=== PATIENT | female | born 1995 | race Caucasian/White ===

== ENCOUNTER 2017-07-04 12:41 | Emergency (ER) | payer SELFPAY ==
[2017-07-04] MEDS ORDERED: ACETAMINOPHEN 325 MG TABLET PO ONE (13:12)
--- NOTE | 2017-07-04 13:14 | ER Document Report ---
ED Medical Screen (RME) - General Chief Complaint: Finger Injury Stated Complaint: RIGHT THUMBNAIL RIPPED OFF Time Seen by Provider: 07/04/17 13:11 Notes: RAPID MEDICAL EVALUATION DISCLOSURE I have seen this patient as part of a Rapid Medical Evaluation and, if applicable, placed any initially appropriate orders. The patient will be seen and fully evaluated, including a full history and physical exam, by a provider ( in Main ED or Fast Track) when a room becomes available. 22-year-old female jumped out of bed this morning and partially ripped her fake nail off her right thumb with the [place] nail still attached. EXAM False nail fully adhered to [place] nail however [place] nail partially pulled up revealing nailbed - Related Data Allergies/Adverse Reactions: No Known Allergies Allergy (Unverified 07/04/17 12:43) Past Medical History - Social History Chew tobacco use (# tins/day): No Frequency of alcohol use: Heavy Drug Abuse: None Renal/ Medical History: Denies: Hx Peritoneal Dialysis Physical Exam - Vital signs Vitals: Temp Pulse Resp BP Pulse Ox 98.3 F 89 16 123/73 99 07/04/17 12:45 07/04/17 12:45 07/04/17 12:45 07/04/17 12:45 07/04/17 12:45 Course - Vital Signs Vital signs: Temp Pulse Resp BP Pulse Ox 98.3 F 89 16 123/73 99 07/04/17 12:45 07/04/17 12:45 07/04/17 12:45 07/04/17 12:45 07/04/17 12:45
--- NOTE | 2017-07-04 14:16 | ER Document Report ---
ED General - General Chief Complaint: Finger Injury Stated Complaint: RIGHT THUMBNAIL RIPPED OFF Time Seen by Provider: 07/04/17 13:11 Information source: Patient - HPI Notes: 22-year-old female presents emergency department for evaluation right thumbnail injury. Patient reports that she jammed her fingernail into the couch. Patient reports that she heard a pop. Patient reports that part of her thumbnail is lifted off the nail bed. She denies any thumb pain or numbness. She denies any other injuries. She also denied any fever, chest pain, shortness of breath, abdominal pain, nausea, vomiting, diarrhea, or dysuria. - Related Data Allergies/Adverse Reactions: No Known Allergies Allergy (Unverified 07/04/17 12:43) Past Medical History - General Information source: Patient - Social History Smoking Status: Current Every Day Smoker Chew tobacco use (# tins/day): No Frequency of alcohol use: Heavy Drug Abuse: None Family History: Reviewed & Not Pertinent Patient has suicidal ideation: No Patient has homicidal ideation: No Renal/ Medical History: Denies: Hx Peritoneal Dialysis Review of Systems - Review of Systems -: Yes All other systems reviewed and negative Physical Exam - Vital signs Vitals: Temp Pulse Resp BP Pulse Ox 98.3 F 89 16 123/73 99 07/04/17 12:45 07/04/17 12:45 07/04/17 12:45 07/04/17 12:45 07/04/17 12:45 - Notes Notes: PHYSICAL EXAMINATION: GENERAL: Well-appearing, well-nourished and in no acute distress. HEAD: Atraumatic, normocephalic. Musculoskeletal: Right thumb: False nail is completely adhered to [place] nail. [place] nail still attached with partial nail bed exposure. No injury to the nailbed. No gross deformity, ecchymosis, erythema, or hot to the touch. Exquisitely tender around the nail but no tenderness to the thumb itself and no focal bony tenderness. Brisk capillary refill with light sensation intact. Neurovascular intact. NEUROLOGICAL: Normal gait, balance, speech, and facial symmetry. PSYCH: Normal mood, normal affect. SKIN: Warm, Dry, normal turgor, no rashes or lesions noted. Course - Re-evaluation Re-evalutation: 07/04/17 14:49 Patient presented to the emergency department for evaluation of nail injury. Patient had a partial nail removal. No evidence of fracture or dislocation. The likelihood of other entities in the differential is insufficient to justify any further testing for them. I discussed care plan at length with patient. Any and all questions were answered. [place] nail was left in place and bandaged and taped to provide support. I attempted to cut the tip of the false nail but [place] nail is moving too much and felt that I would pull the [place] nail out. I explained to patient that she will more than likely lose her nail and that one may or may not grow back. Patient was given Tylenol and Tdap. Discharged home with Motrin. I advised her to follow-up with her primary care provider and take medications as instructed. I also advised her to return immediately to the emergency department for any new, worsening, or concerning symptoms as discussed. She understands and agrees with plan. 07/04/17 14:51 - Vital Signs Vital signs: Temp Pulse Resp BP Pulse Ox 98.3 F 89 16 123/73 99 07/04/17 12:45 07/04/17 12:45 07/04/17 12:45 07/04/17 12:45 07/04/17 12:45 Discharge - Discharge Clinical Impression: Right thumbnail injury Disposition: HOME, SELF-CARE Additional Instructions: Please follow-up with PCP and take medications as instructed. Return immediately to the emergency department for any new, worsening, or concerning symptoms as discussed. Prescriptions: Ibuprofen [Motrin 800 mg Tablet] 800 mg PO Q8H PRN #30 tab PRN Reason: Forms: Smoking Cessation Education Referrals: DAVID CERDA MD [Primary Care Provider] - Follow up as needed
[2017-07-04] MEDS ORDERED: DIPH/PERTUSS(ACELL)/TETANUS VAC/PF 0.5 ML SYR (>=10YO) IM ONE (14:48)
[2017-07-04 15:00] VITALS: BP 115/90
== END 2017-07-04 15:16 | disposition home or self-care (01) ==
LOC: ER 12:41
DX: S61.101A Unspecified open wound of right thumb with damage to nail, initial encounter (principal); W22.8XXA Striking against or struck by other objects, initial encounter; F17.200 Nicotine dependence, unspecified, uncomplicated
CPT/HCPCS: 90471; 90715; 99282